=== PATIENT | female | born 1960 | race African-American/Black ===

== ENCOUNTER 2018-10-06 07:24 | Emergency (ER) | payer BC, SELFPAY ==
--- NOTE | 2018-10-06 09:19 | RAD ---
RADIOGRAPH CHEST 2 VIEWS: Date: 10/06/18 HISTORY: 57-year-old female with cough, congestion, and fever. FINDINGS: The thoracic aorta is tortuous and ectatic. There is no evidence of air space density, pneumothorax, or pulmonary edema. There is no cardiomegaly or pleural effusion. IMPRESSION: 1. No acute cardiopulmonary findings. 2. Ectasia of thoracic aorta. hansel [] POS: [facility]
== END 2018-10-06 09:21 | disposition home or self-care (01) ==
LOC: ERS 07:24
DX: I10 Essential (primary) hypertension (principal); R05 Cough; R50.9 Fever, unspecified; M19.90 Unspecified osteoarthritis, unspecified site; F17.210 Nicotine dependence, cigarettes, uncomplicated; Z71.6 Tobacco abuse counseling
CPT/HCPCS: 71046; 87804; 94640; 99406; J7620

== ENCOUNTER 2019-05-31 07:16 | Inpatient (IN) | payer SELFPAY ==
[2019-05-31 08:29] LABS: #Basophils 0.1 thou/uL (0.0-0.2); #Eosinphils 0.2 thou/uL (0.0-0.7); #Lymphocytes 1.2 thou/uL (1.20-3.40); #Monocytes 0.3 thou/uL (0.11-0.59); #Neutrophils 5.6 thou/uL (1.40-6.50); %Basophils 0.7 % (0.0-1.0); %Eosinophils 3.1 % (0.0-10.0); %Lymphocytes 16.3 % (21.0-51.0); %Neutrophils 75.9 % (42.0-75.0); Hemoglobin 13.7 g/dL (12.0-16.0); Mean Corpuscular Volume 93.8 fL (78.0-98.0); Mean Platelet Volume 7.4 fL (7.4-10.4); Platelet Count 292 thou/uL (130-400); RBC Distribution Width 14.6 % (11.5-14.5); Red Blood Cell (RBC) Count 4.43 mill/uL (4.20-5.40); White Blood Cell (WBC) Count 7.4 thou/uL (4.8-10.8)
[2019-05-31] MEDS ORDERED: Diazepam 5 MG TAB ONE (08:33)
[2019-05-31 08:56] LABS: ALT (SGPT) 12 U/L (8-55); AST (SGOT) 18 U/L (5-34); Albumin 3.9 g/dL (3.5-5.0); Alkaline Phosphatase 67 U/L (40-150); Anion Gap 14 mmol/L (10-20); BUN (Urea Nitrogen) 22 mg/dL (9.8-20.1); Bilirubin, Total 0.3 mg/dL (0.2-1.2); Calc. Creatinine Clearance 0 mL/min (70-130); Calcium 9.1 mg/dL (7.8-10.44); Carbon Dioxide 27 mmol/L (22-29); Chloride 103 mmol/L (98-107); Estimated GFR-MDRD 87; Globulin 3.5 g/dL (2.4-3.5); Glucose 92 mg/dL (70-105); Potassium 4.6 mmol/L (3.5-5.1); Protein, Total 7.4 g/dL (6.0-8.3); Sodium 139 mmol/L (136-145)
--- NOTE | 2019-05-31 08:57 | RAD ---
PORTABLE CHEST: HISTORY: Dizziness. FINDINGS: Lung zee appear clear. No infiltrate. Heart and mediastinum unremarkable. Vasculature normal. IMPRESSION: No acute finding. POS: [facility]
[2019-05-31 09:11] LABS: INR-International Normal Ratio 0.9; PTT 28.5 SEC (22.9-36.1); Prothrombin Time 12.5 SEC (12.0-14.7)
--- NOTE | 2019-05-31 09:13 | CT ---
CT head noncontrast HISTORY: Dizziness. Altered mental status. COMPARISON: 01/31/2012. FINDINGS: There is no evidence of acute intracranial hemorrhage or infarct. Mild diffuse cortical atr ophy and moderate chronic ischemic small vessel disease are again demonstrated. Subcortical hypodensity at the far anterior medial aspect of each frontal lobe is similar in appearance to the pr ior study. There is no mass effect or shift of midline structures. Ventricles are unremarkable. Visualized paranasal sinuses remain well aerated. IMPRESSION: Chronic-type findings are stable. No acute intracranial abnormalities are demonstrated.
[2019-05-31 10:16] LABS: Bilirubin Negative (Negative); Blood, Urine Trace (Negative); Glucose, Urine (Dipstick) Negative (Negative); Leukocyte Negative (Negative); Nitrite Negative (Negative); Protein, Urine (Dipstick) Negative (Neg-Trace); Urobilinogen 0.2 mg/dL (Less than 2)
[2019-05-31 10:18] LABS: Clarity Cloudy (Clear)
[2019-05-31 10:22] LABS: Bacteria/HPF Rare-Few HPF (None Seen); RBC/HPF 0-3 HPF (0-3); Squamous Epithelial 0-3 HPF (0-3); WBC/HPF 0-3 HPF (0-3)
[2019-05-31] MEDS ORDERED: Aspirin Chewable 81 MG TAB ONE (11:08)
[2019-05-31 12:12] LABS: Troponin I Less than 0.010 ng/mL (< 0.028)
[2019-05-31 12:49] VITALS: BMI 18.9
[2019-05-31 13:29] LABS: Troponin I Less than 0.010 ng/mL (< 0.028)
[2019-05-31] MEDS ORDERED: Acetaminophen 325 MG TAB PO PRN (14:56)
[2019-05-31] MEDS ORDERED: Ondansetron ODT 4 MG TAB PO PRN (14:56)
[2019-05-31] MEDS ORDERED: Senokot S 8.6-50 MG TAB PO PRN (14:56)
[2019-05-31] MEDS ORDERED: HYDROcodone/Acetaminophen 5/325 mg Tablet PO PRN (14:56)
--- NOTE | 2019-05-31 16:29 | MRI ---
MRI Brain WO Con: 05/31/2019 2:58 PM CLINICAL HISTORY: Stroke. COMPARISON: Head CT earlier same day; Brain MRI, 02/08/2011. FINDINGS: Extra axial spaces: Normal in size and morphology for the patient's age. Acute infarction: Small focus of acute ischemia is present involving the lateral aspect of right thal amus. Ventricular system: Normal in size and morphology for the patient's age. Basal cisterns: Normal. Cerebral parenchyma: Diffuse gliosis of the deep white matter and subcortical white matter bilaterall y. Midline shift: None. Cerebellum: Normal. Brainstem: Normal. Paranasal sinuses:Scattered mucosal thickening. . IMPRESSION: Small acute infarction involving lateral aspect of the right thalamus. Multifocal signal abnormality of the bilateral deep white matter and subcortical white matter, slight ly progressed from prior exam. This may be on the basis of vasculitis/vasculopathy, given distribution. Correlate clinically. Imaging follow-up may be obtained for continued assessment.
--- NOTE | 2019-05-31 16:58 | ULT ---
Carotid duplex sonogram HISTORY: CVA. Vascular disease. FINDINGS: Right: Scattered mild plaque. Color and spectral Doppler evaluation, peak systolic velocity of 89 cm/ s, and IC to CC ratio of 1.6 suggest no hemodynamically significant stenosis within the extracranial right ICA. Antegrade flow within the vertebral artery. Left: Scattered mild plaque. Color and spectral Doppler evaluation, peak systolic velocity of 63 cm/s , and IC to CC ratio of 1.1 suggest no hemodynamically significant stenosis within the extracranial left ICA. Antegrade flow within the vertebral artery. IMPRESSION: Mild atherosclerosis. No sonographic evidence of significant extracranial ICA stenosis
[2019-05-31] MEDS: Nicotine 21 MG PATCH TD SCH (17:08)
--- NOTE | 2019-05-31 18:29 | HP ---
PRIMARY CARE PHYSICIAN: None. CHIEF COMPLAINT: Worsening dizziness and gait instability. HISTORY OF PRESENT ILLNESS: A 58-year-old female with known history of hypertension, currently not on any medication, who suddenly woke up with dizziness 3 days ago being May 28, 2019. The patient also reported some blurry vision associated with the dizziness as well as right-sided upper and lower limb weakness such that she was unable to use the hand to open her chest drawer. She denied change in speech, slurred speech, facial droop or weakness, headache, confusion, palpitation, chest pain, nausea, vomiting, leg swelling or dysuria. Symptoms persisted since 3 days ago and actually got worse this morning, necessitating presentation to the emergency room. The patient was treated in the emergency room with aspirin and Valium after CT scan was nondiagnostic. She reported that dizziness is worse with movement, especially bending over or turning the head. She also reported that the hand weakness has improved since presentation to the emergency room. The patient was supposed to be on lisinopril, but has not been on any medication in the last 3 months due to loss of her insurance. She also admitted to smoking about a pack of cigarettes since age 16, that is more than 30 pack years. There is no history of seizure or falls. PAST MEDICAL HISTORY: 1. Tobacco abuse disorder. 2. Hypertension. PAST SURGICAL HISTORY: None. FAMILY HISTORY: Significant for diabetes in father and hypertension in mother. Father is , but mother is still alive. SOCIAL HISTORY: The patient lives with . Admitted to smoking about a pack per day since age 16. She also admitted to using alcohol 2 to 4 times per week. She denied recreational drug use. ALLERGIES: NO KNOWN DRUG ALLERGIES REPORTED. HOME MEDICATIONS: Currently not on any medication. She however was on lisinopril up until 3 months ago. REVIEW OF SYSTEMS: 12-point review of system performed was negative other than pertinent positives and negatives included in the history of present illness. PHYSICAL EXAMINATION: VITAL SIGNS: Initial vitals on presentation to the ER showed BP 152/122, pulse 81, respiratory rate 18, temperature 97.9, pulse 100% on room air. Current vitals at 12:26 p.m. showed temperature 97.3, pulse 66, respiratory rate 18, SpO2 of 100% on room air, blood pressure 176/86. GENERAL: Small-framed healthy-looking female in no distress. Afebrile. Anicteric. Acyanotic. HEENT: Normocephalic and atraumatic. Pupils are equal and reacting to light. Oral mucosa is moist. NECK: Supple. Nontender with full range of motion. No masses or lymphadenopathy appreciated. CARDIOVASCULAR: Regular rhythm and rate. Normal heart sounds 1 and 2. RESPIRATORY: Good air entry bilaterally with no crackle or rhonchi or use of accessory muscles. GI: Full, soft, nontender, nondistended with normal bowel sounds. EXTREMITIES: Grossly normal looking, atraumatic with no edema, erythema, or cyanosis. Distal pulses are palpable. NEUROLOGIC: Conscious, alert and oriented x3 with appropriate mental status. Cranial nerves 2 through 12 are grossly intact. The patient moves all extremities. There was no pronator drift. Gait, however, is unstable. The patient complains of dizziness on standing and on moving the head and neck area. Sensation is grossly normal. PSYCHIATRIC: Normal affect and mood. The patient has good insight and she is cooperative. DIAGNOSTIC DATA: CBC showed WBC count of 7.4, hemoglobin of 13.7, MCV of 93.8, and platelets of 292. Coagulation panel showed PT 12.5, INR 0.9, PTT 28.5. CMP showed sodium 139, potassium 4.6, chloride 103, CO2 of 27, BUN 22, creatinine 0.82, glucose 92, calcium 9.1, total bilirubin 0.3, AST 18, ALT 12, alkaline phosphatase 67, total protein 7.4, albumin 3.9, globulin 3.5. Serial troponin x3 has been less than 0.010. Urinalysis showed cloudy yellow urine with pH of 7.5 and specific gravity of 1.015. Protein glucose ketones, nitrite, bilirubin, and leukocyte esterase were negative, white blood was trace. Microscopy showed 0 to 3 rbc and wbc counts. EKG showed normal sinus rhythm with rate of 78. No obvious ischemic changes were noted; however, LVH by voltage criteria was noted. Chest x-ray showed clear lung zee with unremarkable heart and mediastinum. CT scan of the brain showed mild diffuse cortical atrophy and moderate chronic ischemic small-vessel disease with no evidence of acute intracranial hemorrhage or infarct. Findings are said to be similar to prior CT of 2012. ASSESSMENT: 1. Possible subacute cerebrovascular accident. 2. Dizziness: This is persistent. Differentials as benign positional vertigo and acute cerebrovascular accident. 3. Gait instability: Related to dizziness. Cerebrovascular accident remains a concern. 4. Right-sided hemiparesis: Significantly improved. Transient ischemic attack is a concern. 5. Uncontrolled hypertension. 6. Tobacco abuse disorder. PLAN: 1. Admit the patient to neuro floor. Start neuro checks. We will start the patient on aspirin and statins. We will also get echocardiogram and MRI of the brain as well as carotid Dopplers. We will also get PT, OT, and speech evaluation as well as treatment. 2. DVT prophylaxis with Lovenox will be provided. 3. We will recheck labs in the a.m. including lipid panel. We will re-evaluate the patient with other diagnostic test. 4. We will start antihypertensives, if MRI is negative for CVA. Otherwise with allow permissive hypertension. Job ID: [id number] [facility]US[facility]
[2019-05-31] MEDS ORDERED: hydrALAZINE 20 MG/ML VIAL SLOW IVP PRN (19:22)
[2019-05-31] MEDS: Atorvastatin Calcium 40 MG TAB PO SCH (21:14)
[2019-06-01 05:04] LABS: #Eosinphils 0.3 thou/uL (0.0-0.7); #Lymphocytes 1.8 thou/uL (1.20-3.40); #Monocytes 0.3 thou/uL (0.11-0.59); #Neutrophils 5.8 thou/uL (1.40-6.50); %Basophils 0.5 % (0.0-1.0); %Lymphocytes 21.5 % (21.0-51.0); %Monocytes 3.9 % (0.0-10.0); %Neutrophils 70.1 % (42.0-75.0); Hemoglobin 12.9 g/dL (12.0-16.0); Mean Corpuscular HGB CONC 32.2 g/dL (32.0-36.0); Mean Corpuscular Hemoglobin 30.2 pg (27.0-31.0); Mean Corpuscular Volume 93.9 fL (78.0-98.0); Mean Platelet Volume 6.8 fL (7.4-10.4); Platelet Count 289 thou/uL (130-400); RBC Distribution Width 14.4 % (11.5-14.5); Red Blood Cell (RBC) Count 4.26 mill/uL (4.20-5.40); White Blood Cell (WBC) Count 8.2 thou/uL (4.8-10.8)
[2019-06-01 05:28] LABS: Anion Gap 9 mmol/L (10-20); BUN (Urea Nitrogen) 18 mg/dL (9.8-20.1); Calc. Creatinine Clearance 73 mL/min (70-130); Calcium 9.5 mg/dL (7.8-10.44); Carbon Dioxide 28 mmol/L (22-29); Cardiac Risk 2.7 (Less than 4.5); Chloride 104 mmol/L (98-107); Cholesterol 162 mg/dl (< 200 Desired); Estimated GFR-MDRD Greater than 90; Glucose 99 mg/dL (70-105); HDL Cholesterol 61 mg/dL (>60 Neg Risk); LDL Cholesterol, Calculated 87 mg/dL; Potassium 3.4 mmol/L (3.5-5.1); Sodium 138 mmol/L (136-145); Triglycerides 70 mg/dL (Less than 150)
[2019-06-01] MEDS ORDERED: Enoxaparin Sodium 40 MG/0.4 ML SYRINGE SC SCH (09:00)
[2019-06-01] MEDS: Enoxaparin Sodium 40 MG/0.4 ML SYRINGE SC SCH (09:51)
[2019-06-01] MEDS: Aspirin 325 mg Enteric Coated Tablet PO SCH (09:52)
--- NOTE | 2019-06-01 10:10 | PDOC.PN ---
- Subjective Encounter Start Date: 06/01/19 Encounter Start Time: 10:08 Subjective: Admitted with persistent dizziness and gaiat instability since 3 days [employer]. -: Dizziness is improving. - Objective Resuscitation Status - Order Detail: 05/31/19 14:56 Resuscitation Status Routine Resuscitation Status: FULL: Full Resuscitation Vital Signs & Weight: Vital Signs (12 hours) Temp Pulse Resp BP Pulse Ox 06/01/19 07:47 98.0 F 67 14 178/98 H 99 06/01/19 04:00 97.5 F L 74 16 190/101 H 96 06/01/19 00:00 97.4 F L 67 16 175/88 H 95 Weight Weight 110 lb 4.8 oz I&O: 05/31/19 06/01/19 06/02/19 06:59 06:59 06:59 Intake Total 360 240 Balance 360 240 Result Diagrams: 06/01/19 04:50 06/01/19 04:50 Phys Exam - Physical Examination Constitutional: NAD HEENT: PERRLA, moist MMs Neck: no JVD, supple Respiratory: no wheezing, no rales, no rhonchi, clear to auscultation bilateral Cardiovascular: RRR Gastrointestinal: soft, non-tender, no distention, positive bowel sounds Musculoskeletal: no edema, pulses present Neurological: non-focal, moves all 4 limbs awake and conversational. cranial nerves 2-12 are grossly intact. Psychiatric: A&O x 3 Dx/Plan (1) Right thalamic infarction Code(s): I63.9 - CEREBRAL INFARCTION, UNSPECIFIED Status: Acute (2) Gait instability Code(s): R26.81 - UNSTEADINESS ON FEET Status: Acute (3) Dizziness and giddiness Code(s): R42 - DIZZINESS AND GIDDINESS Status: Acute (4) HTN (hypertension) Code(s): I10 - ESSENTIAL (PRIMARY) HYPERTENSION Status: Acute - Plan Consult Neurology. -: Continue ASA and statain. -: Smoking cessation advised. Continue nicotine patch -: Allow permissive hypertension. Will start low dose lisinopril from tomorrow -: Await echo. Continue PT/OT/PATENT [place] * .
[2019-06-01] MEDS: Nicotine 21 MG PATCH TD SCH (16:23)
[2019-06-01] MEDS: Atorvastatin Calcium 40 MG TAB PO SCH (21:07)
--- NOTE | 2019-06-01 22:50 | CON ---
DATE OF CONSULTATION: 06/01/2019 CONSULTING PHYSICIAN: Hospitalist Service. IMPRESSION: 1. Acute lacunar infarction with secondary vertigo. 2. Multifocal areas of subclinical ischemic injury. 3. Untreated hypertension. 4. Tobacco abuse. PLAN: 1. Aspirin. 2. Low-dose statin. 3. Address blood pressure. 4. Discontinue smoking. HISTORY OF PRESENT ILLNESS: Ms. Burden is a 58-year-old black female, who presented with complaints of vertigo. She also thought that there was a slight bit of weakness on the right side. There was no slurred speech. She was still able to walk. She did not have a headache, nausea, difficulty swallowing, or alteration of consciousness. She had an MRI of the brain done, which showed an acute area of ischemia in the right thalamus. There were some fairly extensive subcortical white matter ischemic changes bilaterally. Carotid ultrasound was without any stenosis. Her cholesterol ratio was 2.7. PAST HISTORY: Hypertension. ALLERGIES: NONE. SOCIAL HISTORY: Positive for tobacco. FAMILY HISTORY: Noncontributory. REVIEW OF SYSTEMS: A 10-system review of systems is otherwise negative. PHYSICAL EXAMINATION: VITAL SIGNS: Blood pressure 183/98, pulse 70, respirations 16, and temperature 98.4. HEENT: Pupils are equal and reactive. Conjunctivae are clear. Oropharynx is clear. NECK: Supple. No lymphadenopathy. EXTREMITIES: No cyanosis or edema. NEUROLOGIC: She is alert and cooperative. Her speech is fluent and clear. Cranial nerves are intact. Motor exam shows no fix or drift. Sensation is intact to light touch. She can stand and walk independently. No tremor or dysmetria is present. LABORATORY STUDIES: Unremarkable CBC, coags, and chemistry panel. RADIOGRAPHIC DATA: Imaging was reviewed. SUMMARY: This is a middle-aged woman with fairly extensive small-vessel disease secondary to untreated hypertension. Agree with starting aspirin and statin. Workup thus far has been negative. Echocardiogram is pending, but will likely be unrevealing, given her history. Job ID: [id number]
[2019-06-01] MEDS ORDERED: hydrALAZINE 20 MG/ML VIAL SLOW IVP PRN (23:57)
[2019-06-02] MEDS: Enoxaparin Sodium 40 MG/0.4 ML SYRINGE SC SCH (09:44)
[2019-06-02] MEDS: Aspirin 325 mg Enteric Coated Tablet PO SCH (09:44)
[2019-06-02 12:27] VITALS: BP 162/96; TEMP 97.8
--- NOTE | 2019-06-03 12:53 | EKG ---
Test Reason : ER INDICATION Blood Pressure : / mmHG Vent. Rate : 078 BPM Atrial Rate : 078 BPM P-R Int : 112 ms QRS Dur : 078 ms QT Int : 388 ms P-R-T Axes : 033 011 011 degrees QTc Int : 442 ms Normal sinus rhythm Moderate voltage criteria for LVH, may be normal variant Nonspecific T wave abnormality Abnormal ECG Confirmed by JAMAAL BRADSHAW MD ([id number]), social media editor RICK RIOJAS ([id number]) on 06/03/2019 12:52:46 PM Referred By: Confirmed By:JAMAAL BRADSHAW MD
== END 2019-06-02 15:10 | disposition home or self-care (01) | DRG 65 ==
LOC: ERS 07:16 → 2SE 10:54 → OBSVTOIN 06-01 10:06
PROVIDERS: ADMIT Internal Medicine Nephrology; ATTEND Internal Medicine Nephrology
DX: I63.81 Other cerebral infarction due to occlusion or stenosis of small artery (principal); G81.91 Hemiplegia, unspecified affecting right dominant side; I10 Essential (primary) hypertension; M19.90 Unspecified osteoarthritis, unspecified site; F17.210 Nicotine dependence, cigarettes, uncomplicated; R26.81 Unsteadiness on feet; I67.82 Cerebral ischemia
CPT/HCPCS: 36415; 36416; 70450; 70551; 71045; 80048; 80053; 80061; 81003; 81015; 83735; 84484; 85025; 85610; 85652; 85730; 86140; 93005; 93306; 93880; J0360; J1650

== ENCOUNTER 2021-11-15 20:53 | Emergency (ER) | payer SELFPAY ==
[2021-11-15 22:05] LABS: Amphetamine Not Detected (NotDetected); Barbiturates Screen Not Detected (NotDetected); Benzodiazepine Screen Not Detected (NotDetected); Cocaine Metabolite Screen Not Detected (NotDetected); Methadone Not Detected (NotDetected); Methamphetamine Not Detected (NotDetected); Opiate Screen Not Detected (NotDetected); Oxycodone Screen Not Detected (NotDetected); Phencyclidine (PCP) Not Detected (NotDetected); THC/Cannabinoid Screen Not Detected (NotDetected); Tricyclic Screen Not Detected (NotDetected)
[2021-11-15 22:07] LABS: #Basophils 0.1 thou/uL (0.0-0.2); #Eosinphils 0.2 thou/uL (0.0-0.7); #Lymphocytes 1.8 thou/uL (1.20-3.40); #Monocytes 0.3 thou/uL (0.11-0.59); #Neutrophils 5.6 thou/uL (1.40-6.50); %Basophils 1.1 % (0.0-1.0); %Eosinophils 2.7 % (0.0-10.0); %Lymphocytes 22.4 % (21.0-51.0); %Monocytes 3.5 % (0.0-10.0); %Neutrophils 70.3 % (42.0-75.0); Hemoglobin 14.6 g/dL (12.0-16.0); Mean Corpuscular Hemoglobin 30.3 pg (27.0-31.0); Mean Corpuscular Volume 89.1 fL (78.0-98.0); Mean Platelet Volume 6.2 fL (7.4-10.4); Platelet Count 419 thou/uL (130-400); RBC Distribution Width 15.5 % (11.5-14.5); Red Blood Cell (RBC) Count 4.81 mill/uL (4.20-5.40)
[2021-11-15 23:38] LABS: ALT (SGPT) 11 U/L (8-55); AST (SGOT) 17 U/L (5-34); Acetaminophen Less than 6.0 mcg/mL (10.0-30.0); Albumin 4.1 g/dL (3.5-5.0); Alcohol 244 mg/dL (Less than 10); Alkaline Phosphatase 82 U/L (40-110); Anion Gap 16 mmol/L (10-20); BUN (Urea Nitrogen) 13 mg/dL (9.8-20.1); Bilirubin, Total 0.6 mg/dL (0.2-1.2); Calc. Creatinine Clearance 0 mL/min (70-130); Calcium 9.5 mg/dL (7.8-10.44); Carbon Dioxide 22 mmol/L (22-29); Chloride 104 mmol/L (98-107); Globulin 3.5 g/dL (2.4-3.5); Glucose 114 mg/dL (70-105); Magnesium 2.3 mg/dL (1.6-2.6); Protein, Total 7.6 g/dL (6.0-8.3); Salicylate Less than 8.0 mg/dL (15.0-30.0); Sodium 139 mmol/L (136-145)
[2021-11-16 00:27] LABS: Troponin I Less than 0.010 ng/mL (< 0.028)
[2021-11-16] MEDS ORDERED: Potassium Chloride 20 MEQ TAB ONE (00:41)
[2021-11-16] MEDS ORDERED: Mag-Al 1200 mg/1200 mg/30 ML UDCUP ONE (00:41)
[2021-11-16] MEDS ORDERED: Lidocaine Viscous Sol 2% 15 ml UD Cup ONE (00:41)
== END 2021-11-16 01:41 | disposition home or self-care (01) ==
LOC: ERS 20:53
DX: R07.89 Other chest pain (principal); E87.6 Hypokalemia; R10.13 Epigastric pain; F10.10 Alcohol abuse, uncomplicated; I10 Essential (primary) hypertension; M19.90 Unspecified osteoarthritis, unspecified site; F17.210 Nicotine dependence, cigarettes, uncomplicated; Z79.82 Long term (current) use of aspirin
CPT/HCPCS: 36415; 71045; 80053; 80306; 80307; 83690; 83735; 83880; 84484; 85025; 93005

== ENCOUNTER 2022-07-31 10:00 | Emergency (ER) | payer BC, SELFPAY | END 2022-07-31 11:32 | disposition home or self-care (01) | LOC: ERS 10:00 | DX: B34.9 Viral infection, unspecified (principal); I10 Essential (primary) hypertension; F17.210 Nicotine dependence, cigarettes, uncomplicated; Z20.822 Contact with and (suspected) exposure to COVID-19 | CPT/HCPCS: 99283; U0003; U0005 ==

== ENCOUNTER 2023-07-31 08:52 | Emergency (ER) | payer BC ==
[2023-07-31] MEDS ORDERED: HYDROcodone/Acetaminophen 10/325 mg Tablet ONE (09:23)
== END 2023-07-31 10:22 | disposition home or self-care (01) ==
LOC: ERS 08:52
DX: M79.674 Pain in right toe(s) (principal); I10 Essential (primary) hypertension; F17.210 Nicotine dependence, cigarettes, uncomplicated

== ENCOUNTER 2024-08-13 02:05 | Emergency (ER) | payer BC, SELFPAY ==
[2024-08-13] MEDS ORDERED: Ipratropium Bromide 2.5 ml Neb ONE (02:24)
[2024-08-13] MEDS ORDERED: Albuterol 2.5 MG (0.5 mL) NEB ONE (02:24)
[2024-08-13 04:42] LABS: Troponin I Less than 0.010 ng/mL (< 0.028)
[2024-08-13 04:43] LABS: #Basophils 0.06 10x3/uL (0.0-0.2); %Basophils 0.8 % (0.0-1.0); %Eosinophils 3.9 % (0.0-10.0); %Lymphocytes 27.7 % (21.0-51.0); %Monocytes 4.6 % (0.0-10.0); %Neutrophils 62.7 % (42.0-75.0); Hemoglobin 12.9 g/dL (12.0-16.0); Mean Corpuscular HGB CONC 33.9 g/dL (32.0-36.0); Mean Corpuscular Hemoglobin 30.5 pg (27.0-31.0); Mean Corpuscular Volume 89.8 fL (78.0-98.0); Mean Platelet Volume 9.4 fL (7.4-10.4); Platelet Count 275 10x3/uL (130-400); RBC Distribution Width 14.7 % (11.5-14.5); Red Blood Cell (RBC) Count 4.23 mill/uL (4.20-5.40)
[2024-08-13 04:49] LABS: ALT (SGPT) 6 U/L (8-55); AST (SGOT) 14 U/L (5-34); Albumin 3.7 g/dL (3.4-4.8); Alkaline Phosphatase 66 U/L (40-110); Anion Gap 18 mmol/L (10-20); BUN (Urea Nitrogen) 12 mg/dL (9.8-20.1); Bilirubin, Total 0.6 mg/dL (0.2-1.2); Calc. Creatinine Clearance 0 mL/min (70-130); Calcium 9.1 mg/dL (7.8-10.44); Carbon Dioxide 24 mmol/L (23-31); Chloride 103 mmol/L (98-107); Estimated GFR 91; Globulin 3.4 g/dL (2.4-3.5); Glucose 131 mg/dL (80-115); Potassium 2.5 mmol/L (3.5-5.1); Protein, Total 7.1 g/dL (5.8-8.1); Sodium 142 mmol/L (136-145)
[2024-08-13] MEDS ORDERED: Potassium Chloride 20 MEQ TAB ONE (05:06)
== END 2024-08-13 06:47 | disposition home or self-care (01) ==
LOC: ERS 02:05
DX: R06.02 Shortness of breath (principal); J44.9 Chronic obstructive pulmonary disease, unspecified; F17.210 Nicotine dependence, cigarettes, uncomplicated; I10 Essential (primary) hypertension
CPT/HCPCS: 71045; 80053; 83880; 84484; 85025; 93005; 94640; J7611; J7644

== ENCOUNTER 2024-12-21 08:07 | Emergency (ER) | payer OTHER, SELFPAY ==
[2024-12-21] MEDS ORDERED: Lidocaine 4% Patch ONE (10:33)
[2024-12-21] MEDS ORDERED: Gabapentin 400 MG CAP ONE (10:33)
[2024-12-21] MEDS ORDERED: Ketorolac Tromethamine 30 MG (1 mL) VIAL ONE (10:33)
== END 2024-12-21 11:03 | disposition home or self-care (01) ==
LOC: ERS 08:07
DX: B02.29 Other postherpetic nervous system involvement (principal); F17.210 Nicotine dependence, cigarettes, uncomplicated
CPT/HCPCS: 99282; J1885